=== PATIENT | female | born 1985 | race Caucasian/White ===

== ENCOUNTER 2020-05-30 11:00 | Outpatient (CLI) | payer OTHER | END 2020-05-30 11:01 | disposition home or self-care (01) | LOC: LAB.S 11:00 | PROVIDERS: ATTEND Nurse Practitioner Adult Health | DX: N97.0 Female infertility associated with anovulation (principal) | CPT/HCPCS: 36415; 84144 ==

== ENCOUNTER 2020-07-15 15:17 | Outpatient (CLI) | payer OTHER ==
[2020-07-15 19:01] LABS: THYROID STIMULATING HORMONE 1.21 uIU/mL (0.34-5.60)
[2020-07-15 19:29] LABS: FOLLICLE STIMULATING HORMONE 3.74 mIU/mL
== END 2020-07-15 15:18 | disposition home or self-care (01) ==
LOC: LAB.S 15:17
PROVIDERS: ATTEND Nurse Practitioner Adult Health
DX: N97.0 Female infertility associated with anovulation (principal)
CPT/HCPCS: 36415; 81599; 83001; 83520; 84144; 84443